=== PATIENT | male | born 1955 | race Caucasian/White ===

== ENCOUNTER 2020-10-01 12:00 | Outpatient (CLI) | payer MEDICARE ==
[2020-10-01 14:04] LABS: #Basophils 0.1 10x3/uL (0.0-0.2); #Eosinphils 0.3 10x3/uL (0.0-0.5); #Monocytes 0.6 10x3/uL (0.0-1.1); #Neutrophils 5.1 10x3/uL (1.5-8.4); %Basophils 0.6 % (0.0-2.0); %Lymphocytes 25.3 % (18.0-47.0); %Monocytes 7.4 % (0.0-10.0); %Neutrophils 62.3 % (40.0-75.0); Hemoglobin 18.8 g/dL (13.5-17.5); Mean Corpuscular HGB CONC 33.6 g/dL (32.0-36.0); Mean Corpuscular Hemoglobin 30.7 pg (27.0-33.0); Mean Corpuscular Volume 91.2 fl (81.2-95.1); Mean Platelet Volume 10.3 fl (7.4-10.4); Platelet Count 275 10x3/uL (150-450); RBC Distribution Width 13.1 % (11.5-14.5); Red Blood Cell (RBC) Count 6.13 10x6/uL (4.32-5.72); White Blood Cell (WBC) Count 8.2 10x3/uL (3.5-10.5)
[2020-10-01 14:16] LABS: ALT (SGPT) 32 U/L (8-55); AST (SGOT) 26 U/L (5-34); Albumin 4.8 g/dL (3.4-4.8); Alkaline Phosphatase 49 U/L (40-110); Anion Gap 16 mmol/L (10-20); BUN (Urea Nitrogen) 26 mg/dL (8.4-25.7); Bilirubin, Total 0.5 mg/dL (0.2-1.2); Calc. Creatinine Clearance 0 mL/min (70-130); Carbon Dioxide 22 mmol/L (23-31); Chloride 103 mmol/L (98-107); Globulin 2.8 g/dL (2.4-3.5); Glucose 117 mg/dL (80-115); Protein, Total 7.6 g/dL (5.8-8.1); Sodium 136 mmol/L (136-145)
[2020-10-02 01:22] LABS: SARS-CoV-2 PCR by NAA Not Detected (NotDetected)
== END 2020-10-01 12:01 | disposition home or self-care (01) ==
LOC: LABBT 12:00
PROVIDERS: ATTEND Internal Medicine Cardiovascular Disease
DX: Z01.812 Encounter for preprocedural laboratory examination (principal); Z20.822 Contact with and (suspected) exposure to COVID-19
CPT/HCPCS: 80053; 85025; U0003; U0005; 87635

== ENCOUNTER 2020-10-03 09:08 | Day surgery (SDC) | payer MEDICARE ==
[2020-10-02 14:28] VITALS: BMI 33.7
[2020-10-03] MEDS ORDERED: Lidocaine 1% (PF) 30 ML VIAL ONE (11:08)
[2020-10-03] MEDS ORDERED: Adenosine 6 MG/2 ML VIAL ONE (11:35)
[2020-10-03] MEDS ORDERED: Verapamil 5 MG/2 ML VIAL ONE (11:35)
[2020-10-03] MEDS ORDERED: Nitroglycerin 100MG/250ML BOT 0 ML ONE (11:35)
[2020-10-03] MEDS ORDERED: Fentanyl 100 MCG/2 ML VIAL ONE (11:40)
[2020-10-03] MEDS ORDERED: Midazolam HCl 2 mg/2 ml Vial ONE (11:40)
[2020-10-03] MEDS ORDERED: Iopamidol 370 76% 50 ML VIAL FS ONE (12:46)
[2020-10-03] MEDS ORDERED: Iopamidol 370 76% 100 ML VIAL ONE (12:46)
== END 2020-10-03 14:47 | disposition home or self-care (01) ==
LOC: CCL 09:08
PROVIDERS: ATTEND Internal Medicine Cardiovascular Disease
PROC: 4A023N7 Measurement of Cardiac Sampling and Pressure, Left Heart, Percutaneous Approach (ICD-10-PCS; principal; 2020-10-03)
PROC: B2111ZZ Fluoroscopy of Multiple Coronary Arteries using Low Osmolar Contrast (ICD-10-PCS; 2020-10-03)
DX: R07.9 Chest pain, unspecified (principal); I47.2 Ventricular tachycardia; I10 Essential (primary) hypertension; E78.5 Hyperlipidemia, unspecified; Z79.82 Long term (current) use of aspirin; Z79.899 Other long term (current) drug therapy; Z87.891 Personal history of nicotine dependence
CPT/HCPCS: 76942; 93458; 93567; 99152; 99153; J0153; J2001; J2250; J3010; Q9967